=== PATIENT | male | born 1975 ===

== ENCOUNTER → 2024-06-05 06:33 | Day surgery (SDC) | payer OTHER, SELFPAY | LOC: GI 06:33 | PROVIDERS: ATTENDING PHYSICIAN Internal Medicine Gastroenterology | DX: Z12.11 Encounter for screening for malignant neoplasm of colon (principal); K64.8 Other hemorrhoids; D12.2 Benign neoplasm of ascending colon; R21 Rash and other nonspecific skin eruption | CPT/HCPCS: 45385; 88305 ==

== ENCOUNTER → 2025-01-01 13:37 | Outpatient (REF) | payer OTHER, SELFPAY | LOC: RAD 13:37 | PROVIDERS: ATTENDING PHYSICIAN Student in an Organized Health Care Education/Training Program | DX: N50.811 Right testicular pain (principal) | CPT/HCPCS: 76870; 93976 ==